=== PATIENT | male | born 1955 | race Caucasian/White ===

== ENCOUNTER 2016-12-16 13:20 | Day surgery (SDC) | payer OTHER ==
[~2016-12-16] VITALS: Ht 185.4 cm; Wt 112.9 kg
[~2016-12-16 13:20] MED LIST: ALEVE220 M2 PO; FLONASE ALLERG9.9 ML BOTH NARES; PAXIL10 MG PO; TYLENOL WITH C1 EACH PO
[2016-12-16 13:53] LABS: HEMATOCRIT 40.9 % (38.0-50.0); MCH 32.7 PG (29.0-34.0); MCHC 35.9 G/DL (30.0-36.0); MCV 90.9 FL (86-99); MEAN PLAT.VOLUME 10.5 uM^3 (9.0-12.4); PLATELET COUNT 170 K/uL (156-360); RBC DIS.WIDTH-CV 12.5 % (11.8-14.6); WHITE BLOOD COUNT 7.9 K/uL (4.1-10.2)
[2016-12-16 13:55] VITALS: BP 138/91
[2016-12-16 17:15] VITALS: BP 121/72
[2016-12-16 17:58] VITALS: BP 127/81
== END 2016-12-16 17:59 | disposition home or self-care (01) ==
LOC: SDC 13:20
PROVIDERS: Neurological Surgery
PROC: 01Q53ZZ Repair Median Nerve, Percutaneous Approach (ICD-10-PCS; principal; 2016-12-16)
DX: G56.02 Carpal tunnel syndrome, left upper limb (principal); M19.90 Unspecified osteoarthritis, unspecified site
CPT/HCPCS: 85027; J0690; J1885